=== PATIENT | female | born 1980 | race Caucasian/White ===

== ENCOUNTER 2017-07-02 12:14 | Emergency (ER) | payer OTHER, SELFPAY | END 2017-07-02 13:28 | disposition home or self-care (01) | PROVIDERS: Emergency Provider Nurse Practitioner Family; Family Provider Family Medicine; Visit Provider Nurse Practitioner Family | DX: J01.80 Other acute sinusitis (principal); F17.210 Nicotine dependence, cigarettes, uncomplicated; Z88.1 Allergy status to other antibiotic agents | CPT/HCPCS: 99201 ==

== ENCOUNTER 2017-07-16 16:30 | Emergency (ER) | payer OTHER, SELFPAY ==
[2017-07-16 18:15] VITALS: BP 135/66; PULSE 107; RESP 20; TEMP 37.2; O2SAT 100; BMI 24.7
[2017-07-16 18:26] LABS: UTC Influenza A Antigen Negative (Negative); UTC Influenza B Antigen Negative (Negative)
--- NOTE | 2017-07-16 18:35 | HMH.EDUTC ---
[facility] [place] Impression: Sinusitis Qualifiers: Sinusitis location: other Chronicity: unspecified Qualified Code(s): J32.9 - Chronic sinusitis, unspecified Disposition: Home, Self-Care Condition on Discharge: Good Instructions: Sinusitis, Sinus Headache, DI for Sinusitis Additional Instructions: Start antibiotic. Sinus infections may take 2-3 days to notice much improvement so be sure to use conservative measures as discussed for symptoms Flonase 2 spray in each nostril daily to help with nasal congestion, sinus an ear pressure/inflammation Lots of Fluids Sleep elevated Humidifer/vaporizer Augmentin can cause GI effects. Probiotics may help to prevent these symptoms Prescriptions: Doxycycline Monohydrate 100 mg PO BID #14 capsule Fluconazole [Diflucan] 150 mg PO ONCE #1 tablet predniSONE [Prednisone 20mg Tab] 20 mg PO BID #10 tab Promethazine/Dextromethorphan [Promethazine-Dm Syrup] 5 ml PO Q4H PRN #200 syrup PRN Reason: Cough Referrals: Mike Escamilla [Primary Care Provider] - Time of Disposition: 18:50 (Patient state that she has taken Doxycyline before with no reaction) Medical Decision Making Vital Signs: 07/16/17 18:15 Temperature 99 F Temperature Source Temporal Artery Scan Pulse Rate [Right Brachial] 107 H Respiratory Rate 20 Blood Pressure [Right Arm] 135/66 Blood Pressure Mean [Right Arm] 89 Blood Pressure Source [Right Arm] Automatic Cuff Blood Pressure Position [Right Arm] Sitting 02 Sat by Pulse Oximetry 100 Oxygen Delivery Method Room Air - Lab Data Lab Results 07/16/17 18:17: Influenza Type A Ag Negative, Influenza Type B Ag Negative - Sohan Inquiry Pt receiving controlled substance: No Sohan was queried for this patient: No [facility] [place] - General Stated complaint: cough drainage sore throat Mode of Arrival: Ambulatory Source of Information: Patient Limitations: No Limitations Description of Symptoms (Recalled from Triage Doc. by RN): COUGH, CONGESTION, ACHES, AND CHILLS HEENT Symptoms (Recalled from RN notes): No Resp Symptoms (Recalled from RN notes): Yes (COUGH AND CONGESTION) Skin Symptoms (Recalled from RN notes): No MS Symptoms (Recalled from RN notes): Yes (BODYACHES) Functional Status (Recalled from RN notes): N/A - History of Present Illness Provider Complaint: Patient state that she has been having sinus pain and pressure along with cough, nasal drainage sore throat and body aches State that she has continued to get worse State that she was worried that she may have the flu. State that she was seen about 2 weeks ago because she thought she may have a sinus infection and then it got better now it is back and worse than it was initially - Related Data Previous Rx's Medication Instructions Recorded Doxycycline Monohydrate 100 mg PO BID #14 cap 07/16/17 Fluconazole [Diflucan] 150 mg PO ONCE #1 tab 07/16/17 Promethazine/Dextromethorphan 5 ml PO Q4H PRN #200 syrup 07/16/17 [Promethazine-Dm Syrup] predniSONE [Prednisone 20mg 20 mg PO BID #10 tab 07/16/17 Tab] Allergies Allergy/AdvReac Type Severity Reaction Status Date / Time amoxicillin [AMOXICILLIN] Allergy Intermediate Unverified 07/02/17 12:26 azithromycin [AZITHROMYCIN] Allergy Intermediate Unverified 07/02/17 12:26 cephalexin [From KEFLEX] Allergy Intermediate Unverified 07/02/17 12:26 - Worker's Comp Is this a Worker's Comp case?: No [facility] History I have reviewed the patient's past medical history: Yes Medical History: Denies:: Cancer, Diabetes Mellitus Type 1, Diabetes Mellitus Type 2, MRSA Amputation: No Fractures: No - *Social History Smoking Status: Current every day smoker Tobacco Type: cigarettes Alcohol Intake: current Alcohol Intake Frequency:: holidays/special occasions only - Psychiatric History Expresses thoughts of harming self/others: None Suicide Plan Description: No Plan ROS Obtained: Yes All systems reviewed & no additional complaints
--- NOTE | 2017-07-16 18:38 | ED_ITS ---
[facility] [place] Clinical Impression: Sinusitis Qualifiers: Sinusitis location: other Chronicity: unspecified Qualified Code(s): J32.9 - Chronic sinusitis, unspecified Disposition: Home, Self-Care Condition on Discharge: Good Instructions: Sinusitis, Sinus Headache, DI for Sinusitis Additional Instructions: Start antibiotic. Sinus infections may take 2-3 days to notice much improvement so be sure to use conservative measures as discussed for symptoms Flonase 2 spray in each nostril daily to help with nasal congestion, sinus an ear pressure/inflammation Lots of Fluids Sleep elevated Humidifer/vaporizer Augmentin can cause GI effects. Probiotics may help to prevent these symptoms Prescriptions: Doxycycline Monohydrate 100 mg PO BID #14 capsule Fluconazole [Diflucan] 150 mg PO ONCE #1 tablet predniSONE [Prednisone 20mg Tab] 20 mg PO BID #10 tab Promethazine/Dextromethorphan [Promethazine-Dm Syrup] 5 ml PO Q4H PRN #200 syrup PRN Reason: Cough Referrals: Mike Escamilla [Primary Care Provider] - Time of Disposition: 18:50 (Patient state that she has taken Doxycyline before with no reaction) Medical Decision Making Vital Signs: 07/16/17 18:15 Temperature 99 F Temperature Source Temporal Artery Scan Pulse Rate [Right Brachial] 107 H Respiratory Rate 20 Blood Pressure [Right Arm] 135/66 Blood Pressure Mean [Right Arm] 89 Blood Pressure Source [Right Arm] Automatic Cuff Blood Pressure Position [Right Arm] Sitting 02 Sat by Pulse Oximetry 100 Oxygen Delivery Method Room Air - Lab Data Lab Results 07/16/17 18:17: Influenza Type A Ag Negative, Influenza Type B Ag Negative - Sohan Inquiry Pt receiving controlled substance: No Sohan was queried for this patient: No [facility] [place] HPI - General Stated complaint: cough drainage sore throat Mode of Arrival: Ambulatory Source of Information: Patient Limitations: No Limitations Description of Symptoms (Recalled from Triage Doc. by RN): COUGH, CONGESTION, ACHES, AND CHILLS HEENT Symptoms (Recalled from RN notes): No Resp Symptoms (Recalled from RN notes): Yes (COUGH AND CONGESTION) Skin Symptoms (Recalled from RN notes): No MS Symptoms (Recalled from RN notes): Yes (BODYACHES) Functional Status (Recalled from RN notes): N/A - History of Present Illness Provider Complaint: Patient state that she has been having sinus pain and pressure along with cough, nasal drainage sore throat and body aches State that she has continued to get worse State that she was worried that she may have the flu. State that she was seen about 2 weeks ago because she thought she may have a sinus infection and then it got better now it is back and worse than it was initially - Related Data Previous Rx's Medication Instructions Recorded Doxycycline Monohydrate 100 mg PO BID #14 cap 07/16/17 Fluconazole [Diflucan] 150 mg PO ONCE #1 tab 07/16/17 Promethazine/Dextromethorphan 5 ml PO Q4H PRN #200 syrup 07/16/17 [Promethazine-Dm Syrup] predniSONE [Prednisone 20mg 20 mg PO BID #10 tab 07/16/17 Tab] Allergies Allergy/AdvReac Type Severity Reaction Status Date / Time amoxicillin [AMOXICILLIN] Allergy Intermediate Unverified 07/02/17 12:26 azithromycin [AZITHROMYCIN] Allergy Intermediate Unverified 07/02/17 12:26 cephalexin [From KEFLEX] Allergy Intermediate Unverified 07/02/17 12:26
== END 2017-07-16 19:14 | disposition home or self-care (01) ==
PROVIDERS: Emergency Provider Nurse Practitioner; Family Provider Family Medicine; PCP Family Medicine
DX: J32.9 Chronic sinusitis, unspecified (principal); Z88.1 Allergy status to other antibiotic agents
CPT/HCPCS: 87804; 99202

== ENCOUNTER 2017-07-22 17:59 | Emergency (ER) | payer OTHER, SELFPAY ==
--- NOTE | 2017-07-22 19:34 | XR_ITS ---
XR chest 2V HISTORY: ITS.REASON: COUGH ORDERING PHYSICIAN: Tiffani Brown PATIENT AGE: 36 years COMPARISON: 12/29/2015 FINDINGS: The cardiomediastinal silhouette and pulmonary vascularity are within normal limits. The lungs are clear without infiltrates, suspicious nodules, or pleural effusions. No acute bony abnormalities. IMPRESSION: Negative chest, no acute finding
[2017-07-22 19:36] VITALS: BP 108/79; PULSE 89; RESP 20; TEMP 37.2; O2SAT 98; BMI 24.7
--- NOTE | 2017-07-22 19:48 | HMH.EDUTC ---
[facility] [place] Clinical Impression: Sinusitis Qualifiers: Sinusitis location: other Chronicity: unspecified Qualified Code(s): J32.9 - Chronic sinusitis, unspecified Upper respiratory infection Qualifiers: URI type: unspecified URI Qualified Code(s): J06.9 - Acute upper respiratory infection, unspecified Disposition: Home, Self-Care Condition on Discharge: Good Instructions: Cough, Sinusitis (Alternative Therapy), Sinus Headache, DI for Nasal Congestion, Guaifenesin Additional Instructions: Take medication as prescribed Follow up with family doctor if symptoms do not improve or worsen Return if needed Vaporizer and humidifier may help to moisten the air and help in breathing Drink plenty of water Prescriptions: Albuterol Sulfate [Proair Hfa 90mcg/puff Inh] 2 puffs IH Q4HP PRN #1 inh PRN Reason: Shortness Of Breath Or Wheezing Dextromethorphan Polistirex [Delsym] 10 ml PO Q12H PRN #200 kat.er.12h PRN Reason: Cough Fluticasone Propionate [Flonase 50mcg nasal spray 16gm] 2 spr NS DAILY #1 bottle Guaifenesin/Dextromethorphan [Mucinex Dm ER 1,200-60 mg Tab] 1 each PO Q12 #20 tab.er.12h levoFLOXacin [Levaquin 500mg tab] 500 mg PO DAILY #10 tab Referrals: Mike Escamilla [Primary Care Provider] - Forms: Work/School Release Time of Disposition: 20:35 Medical Decision Making - Medical Records Medical records reviewed: Yes: I reviewed the patient's medical records. Vital Signs: 07/22/17 19:36 Temperature 98.9 F Temperature Source Temporal Artery Scan Pulse Rate [Left Brachial] 89 Respiratory Rate 20 Blood Pressure [Left Arm] 108/79 Blood Pressure Mean [Left Arm] 88 Blood Pressure Source [Left Arm] Automatic Cuff Blood Pressure Position [Left Arm] Sitting 02 Sat by Pulse Oximetry 98 Oxygen Delivery Method Room Air - Lab Data Lab Results 07/22/17 20:04: Influenza Type A Ag Negative, Influenza Type B Ag Negative Orders (Tests/Meds): ED MEDICATIONS Discontinued Medications Generic Name Dose Route Start Last Admin Trade Name Freq PRN Reason Stop Dose Admin Methylprednisolone Sodium Succinate 125 mg 07/22/17 20:27 Solu-Medrol 125mg/2ml Vial IM 07/22/17 20:28 ONCE ONE ORDERS Category Date Time Status Chest XR 2 view (NOT portable) [XR chest 2V] Stat Exams 07/22/17 19:34 Taken - Radiology Data #1 Image(s): Chest Image Reviewed: Yes I reviewed the patient's radiology image w/the ED provider Preliminary Findings: Normal/NAD, No Infiltrates Seen - Sohan Inquiry Pt receiving controlled substance: No Sohan was queried for this patient: No [facility] [place] - General Stated complaint: chest congestion, cough, soa Mode of Arrival: Ambulatory Source of Information: Patient Limitations: No Limitations Description of Symptoms (Recalled from Triage Doc. by RN): STATES THIS IS HER THIRD VISIT IN 3 WEEKS AND HER COUGH IS WORSENING AND SOA IN THE MORNINGS. PT STATES THAT HER COUGH IS PRODUCTIVE. HEENT Symptoms (Recalled from RN notes): No Resp Symptoms (Recalled from RN notes): Yes (COUGH, SOA) Skin Symptoms (Recalled from RN notes): No MS Symptoms (Recalled from RN notes): No Functional Status (Recalled from RN notes): N/A - History of Present Illness Provider Complaint: Patient states that she has been here three times and still not getting any better State that she was seen and treated last week with sinus infection and placed on Doxycycline however still having sinus pressure, cough and congestion States that she was concerned because medication has not helped to improve her symptoms - Related Data Previous Rx's Medication Instructions Recorded Doxycycline Monohydrate 100 mg PO BID #14 cap 07/16/17 Fluconazole [Diflucan] 150 mg PO ONCE #1 tab 07/16/17 Promethazine/Dextromethorphan 5 ml PO Q4H PRN #200 syrup 07/16/17 [Promethazine-Dm Syrup] predniSONE [Prednisone 20mg 20 mg PO BID #10 tab 07/16/17 Tab] Albuterol Sulfate [Proair Hfa 2 puffs IH Q4HP
--- NOTE | 2017-07-22 19:54 | ED_ITS ---
[facility] [place] Disposition Clinical Impression: Sinusitis Qualifiers: Sinusitis location: other Chronicity: unspecified Qualified Code(s): J32.9 - Chronic sinusitis, unspecified Upper respiratory infection Qualifiers: URI type: unspecified URI Qualified Code(s): J06.9 - Acute upper respiratory infection, unspecified Disposition: Home, Self-Care Condition on Discharge: Good Instructions: Cough, Sinusitis (Alternative Therapy), Sinus Headache, DI for Nasal Congestion, Guaifenesin Additional Instructions: Take medication as prescribed Follow up with family doctor if symptoms do not improve or worsen Return if needed Vaporizer and humidifier may help to moisten the air and help in breathing Drink plenty of water Prescriptions: Albuterol Sulfate [Proair Hfa 90mcg/puff Inh] 2 puffs IH Q4HP PRN #1 inh PRN Reason: Shortness Of Breath Or Wheezing Dextromethorphan Polistirex [Delsym] 10 ml PO Q12H PRN #200 kat.er.12h PRN Reason: Cough Fluticasone Propionate [Flonase 50mcg nasal spray 16gm] 2 spr NS DAILY #1 bottle Guaifenesin/Dextromethorphan [Mucinex Dm ER 1,200-60 mg Tab] 1 each PO Q12 #20 tab.er.12h levoFLOXacin [Levaquin 500mg tab] 500 mg PO DAILY #10 tab Referrals: Mike Escamilla [Primary Care Provider] - Forms: Work/School Release Time of Disposition: 20:35 Medical Decision Making - Medical Records Medical records reviewed: Yes: I reviewed the patient's medical records. Vital Signs: 07/22/17 19:36 Temperature 98.9 F Temperature Source Temporal Artery Scan Pulse Rate [Left Brachial] 89 Respiratory Rate 20 Blood Pressure [Left Arm] 108/79 Blood Pressure Mean [Left Arm] 88 Blood Pressure Source [Left Arm] Automatic Cuff Blood Pressure Position [Left Arm] Sitting 02 Sat by Pulse Oximetry 98 Oxygen Delivery Method Room Air - Lab Data Lab Results 07/22/17 20:04: Influenza Type A Ag Negative, Influenza Type B Ag Negative Orders (Tests/Meds): ED MEDICATIONS Discontinued Medications Generic Name Dose Route Start Last Admin Trade Name Freq PRN Reason Stop Dose Admin Methylprednisolone Sodium Succinate 125 mg 07/22/17 20:27 Solu-Medrol 125mg/2ml Vial IM 07/22/17 20:28 ONCE ONE ORDERS Category Date Time Status Chest XR 2 view (NOT portable) [XR chest 2V] Stat Exams 07/22/17 19:34 Taken - Radiology Data #1 Image(s): Chest Image Reviewed: Yes I reviewed the patient's radiology image w/the ED provider Preliminary Findings: Normal/NAD, No Infiltrates Seen - Sohan Inquiry Pt receiving controlled substance: No Sohan was queried for this patient: No [facility] [place] HPI - General Stated complaint: chest congestion, cough, soa Mode of Arrival: Ambulatory Source of Information: Patient Limitations: No Limitations Description of Symptoms (Recalled from Triage Doc. by RN): STATES THIS IS HER THIRD VISIT IN 3 WEEKS AND HER COUGH IS WORSENING AND SOA IN THE MORNINGS. PT STATES THAT HER COUGH IS PRODUCTIVE. HEENT Symptoms (Recalled from RN notes): No Resp Symptoms (Recalled from RN notes): Yes (COUGH, SOA) Skin Symptoms (Recalled from RN notes): No MS Symptoms (Recalled from RN notes): No Functional Status (Recalled from RN notes): N/A - History of Present Illness Provider Complaint: Patient states that she has been here three times and still not getting any better State th
[2017-07-22 20:14] LABS: UTC Influenza A Antigen Negative (Negative); UTC Influenza B Antigen Negative (Negative)
== END 2017-07-22 20:47 | disposition home or self-care (01) ==
PROVIDERS: Emergency Provider Nurse Practitioner; Family Provider Family Medicine; PCP Family Medicine
DX: J06.9 Acute upper respiratory infection, unspecified (principal); J32.9 Chronic sinusitis, unspecified; Z88.1 Allergy status to other antibiotic agents; F17.210 Nicotine dependence, cigarettes, uncomplicated
CPT/HCPCS: 71046; 87804; 96372; 99202; 99282

== ENCOUNTER 2022-05-13 10:12 | Emergency (ER) | payer BC, SELFPAY ==
--- NOTE | 2022-05-13 10:18 | XR_ITS ---
FINAL REPORT CLINICAL HISTORY: PAIN FINDINGS: RIGHT SHOULDER 3 views of the right shoulder were obtained. There is no acute fracture or dislocation. The joint spaces are intact. There is no soft tissue abnormality. IMPRESSION: No acute bony abnormality. Reviewed, Interpreted and Dictated by Nick Avery MD Transcribed by Gayle Bennett Authenticated and [facility]
--- NOTE | 2022-05-13 11:42 | EXP.UTC ---
Discharge Plan Disposition Patient Disposition: Home, Self-Care Condition: Good Prescriptions Prescriptions: New cyclobenzaprine 10 mg tablet 10 mg PO TID PRN (Reason: muscle spasm) Qty: 30 0RF methylprednisolone [Medrol (Bhavesh)] 4 mg tablets,dose pack See Rx Instructions .Route .COMPLEX 6 Days Qty: 21 0RF Rx Instructions: taper pack; No Action escitalopram oxalate [Lexapro] 20 mg tablet 20 mg PO DAILY omeprazole 40 mg capsule,delayed release(DR/EC) 40 mg PO DAILY propranolol 10 mg tablet 10 mg PO BID lorazepam 0.5 mg tablet 0.5 mg PO DAILY PRN albuterol sulfate [ProAir HFA] 90 mcg/actuation HFA aerosol inhaler 1 inh INHALATION QID amoxicillin 500 mg capsule 500 mg PO Q12H 10 Days Qty: 20 0RF Referrals Follow up/Referrals: Provider,Referral, MD [Primary Care Provider] - See instructions Activity Restrictions/Add. Instructions Additional Instructions/Restrictions: *ibuprofen miguel 8 hours with meal as needed for pain/inflammation *Not additional anti-inflammatory like motrin, aleve, advil with the above amount of ibuprofen take as directed on package if you can take it . You can still take Tylenol every 4 hours as needed if you need something else for pain *Ice 20 minutes every 2 hours for the first 48 hours after the initial injury followed by moist heat every 20 minutes 3-4 times a day to affected area *Muscle relaxer every 8 hours as needed for muscle spasms but remember, it WILL cause drowsiness You cannot take it and drive, operate machinery or care for small children. *Keep this area active, no movement leads to more stiffness, However take it easy and avoid heavy lifting pushing or pulling *Follow up with you family doctor if no improvement for further treatment Clinical Impressions Clinical Impression: Muscle spasm Instructions Patient Instructions: DI for Muscle Spasm Discharge ED Provider: Tiffani Brown [facility] General Stated complaint: left shoulder pain, no accident Time Seen by Provider: 05/13/22 11:42 History of Present Illness Provider Complaint: Patient states that she thinks she may have slept wrong and having spasms States that pain is worse when she tries to move her right shoulder and turn her head certain way States that she is not sure if she may have picked up her dog wrong or slept wrong since she woke up that way a couple days ago Denies chest pain States that pain is mainly in her shoulder area and feels tight Related Data Home Medications Medication Instructions Recorded Confirmed albuterol sulfate 90 mcg/actuation 1 inh inhalation QID 03/13/21 03/13/21 aerosol inhaler (ProAir HFA) escitalopram oxalate 20 mg tablet 20 mg PO DAILY 03/13/21 03/13/21 (Lexapro) lorazepam 0.5 mg tablet 0.5 mg PO DAILY PRN 03/13/21 03/13/21 omeprazole 40 mg capsule,delayed 40 mg PO DAILY 03/13/21 03/13/21 release propranolol 10 mg tablet 10 mg PO BID 03/13/21 03/13/21 Previous Rx's Medication Instructions Recorded amoxicillin 500 mg capsule 500 mg PO Q12H otitis media 10 03/13/21 days #20 caps cyclobenzaprine 10 mg tablet 10 mg PO TID PRN muscle spasm #30 05/13/22 tabs methylprednisolone 4 mg tablets in See Rx Instructions .Route 05/13/22 a dose pack (Medrol (Bhavesh)) .COMPLEX 6 days #21 tabs Allergies Allergy/AdvReac Type Severity Reaction Status Date / Time No Known Allergies Allergy Verified 03/13/21 12:55 PFSH PFS Social History Smoking Status: Current every day smoker tobacco type: cigarettes packs per day: 1 alcohol intake: current current occupational status: employed Travel in the last 8 weeks: Inside the [place] housing: house ROS Obtained: Yes All systems reviewed & no additional complaints except as documented and Yes Systems reviewed as appropriate & no additional complaints except as documented Cardiovascular Cardiovascular: Reports system reviewed and no additional complaints,
[2022-05-13 11:43] VITALS: BP 141/78; PULSE 74; RESP 17; TEMP 36.7; O2SAT 98; BMI 30.2
[2022-05-13 12:14] VITALS: BP 136/77; PULSE 71; RESP 17; TEMP 36.7; O2SAT 98
== END 2022-05-13 12:16 | disposition home or self-care (01) ==
PROVIDERS: Emergency Provider Nurse Practitioner
DX: M62.838 Other muscle spasm (principal)
CPT/HCPCS: 73030; 99212; G0463

== ENCOUNTER → 2022-12-13 09:02 | Outpatient (CLI) | payer BC, SELFPAY ==
[2022-12-13 10:08] LABS: Hemoglobin A1C 5.4 % (4.0-6.0)
[2022-12-13 10:14] LABS: Alanine Aminotransferase 21 U/L (12-78); Albumin Level 4.3 g/dl (3.5-5.0); Albumin/Globulin Ratio 1.6 (1.1-1.8); Alkaline Phosphatase 86 U/L (38-126); Anion Gap 13.9 mEq/L (5-15); Aspartate Amino Transferase 24 U/L (14-36); Bilirubin,Total 0.8 mg/dl (0.2-1.3); Blood Urea Nitrogen 14 mg/dl (7-17); Calcium 8.9 mg/dl (8.4-10.2); Carbon Dioxide 29 mmol/L (22.0-30.0); Chloride 102 mmol/L (98-107); Chol/HDL Ratio 4.1 (1-3.5); Cholesterol 156 mg/dl (140-200); Estimated Glomerular Filt Rate 61 ml/min (>60); GFR (African American) 74 ML/MIN (>60); Globulin 2.7 g/dL (1.3-3.2); Glucose 97 mg/dl (74-100); HDL Cholesterol 38 mg/dl (40-60); Potassium 4.9 mmoL/L (3.5-5.1); Sodium 140 mmol/L (136-145); Triglycerides 195 mg/dl (30-150); VLDL Cholesterol 39 mg/dL (0-40)
[2022-12-13 10:25] LABS: Direct LDL Cholesterol 87.07 mg/dL (100-129)
== END ==
PROVIDERS: PCP Nurse Practitioner Family; Visit Provider Nurse Practitioner Family
DX: R73.03 Prediabetes (principal); E78.2 Mixed hyperlipidemia
CPT/HCPCS: 36415; 80053; 80061; 83036

== ENCOUNTER 2024-02-19 09:36 | Outpatient (CLI) | payer BC, SELFPAY ==
[2024-02-19 10:15] LABS: Hemoglobin A1C 5.8 % (4.0-6.0)
[2024-02-19 10:25] LABS: Basophils # 0.1 K/mm3 (0-0.2); Basophils % 1.3 % (0.1-2.0); Eosinophils # 0.2 K/mm3 (0.0-0.4); Eosinophils % 1.6 % (0.1-12.0); Hematocrit 44.3 % (37.0-47.0); Hemoglobin 13.9 g/dL (12.2-16.2); Lymphocytes # 2.6 K/mm3 (0.7-4.5); Lymphocytes % 26.3 % (10-50); Mean Corpuscular HGB Conc 31.4 g/dL (31.8-35.4); Mean Corpuscular Hemoglobin 31.4 pg (27.0-31.2); Mean Platelet Volume 7.9 fl (7.4-10.4); Monocytes # 0.4 K/mm3 (0.1-1.0); Monocytes % 4.3 % (1.7-9.3); Neutrophils # 6.4 K/mm3 (1.8-7.8); Neutrophils % 66.4 % (37.0-80.0); Platelet Count 302 K/mm3 (142-424); Red Blood Count 4.43 M/mm3 (4.20-5.40); Red Cell Distribution Width 14.2 % (11.5-17.5); White Blood Count 9.7 K/mm3 (4.8-10.8)
[2024-02-19 10:38] LABS: Albumin Level 4.2 g/dl (3.5-5.0); Chloride 107 mmol/L (98-107); Sodium 137 mmol/L (136-145)
[2024-02-19 10:39] LABS: Potassium 4.6 mmoL/L (3.5-5.1)
[2024-02-19 10:41] LABS: Alanine Aminotransferase 23 U/L (12-78); Albumin/Globulin Ratio 1.5 (1.1-1.8); Anion Gap 7.6 mEq/L (5-15); Aspartate Amino Transferase 21 U/L (14-36); Blood Urea Nitrogen 12 mg/dl (7-17); Carbon Dioxide 27 mmol/L (22.0-30.0); Estimated Glomerular Filt Rate 54 ml/min (>60); GFR (African American) 66 ML/MIN (>60); Globulin 2.8 g/dL (1.3-3.2)
[2024-02-19 10:42] LABS: Alkaline Phosphatase 80 U/L (38-126); Bilirubin,Total 0.5 mg/dl (0.2-1.3); Chol/HDL Ratio 4.3 (1-3.5); Cholesterol 170 mg/dl (140-200); Glucose 96 mg/dl (74-100); HDL Cholesterol 40 mg/dl (40-60); Triglycerides 128 mg/dl (30-150); VLDL Cholesterol 26 mg/dL (0-40)
[2024-02-19 10:52] LABS: Direct LDL Cholesterol 96.26 mg/dL (100-129)
[2024-02-19 11:12] LABS: Thyroid Stimulating Hormone 2.09 uIU/mL (0.465-4.68)
== END 2024-02-19 23:59 | disposition home or self-care (01) ==
LOC: LAB 09:38
PROVIDERS: PCP Nurse Practitioner Family; Visit Provider Nurse Practitioner Family
DX: E78.5 Hyperlipidemia, unspecified (principal)
CPT/HCPCS: 36415; 80050; 80053; 80061; 83036; 84443; 85025

== ENCOUNTER 2024-06-10 10:55 | Outpatient (CLI) | payer BC, SELFPAY ==
--- NOTE | 2024-06-10 11:00 | XR_ITS ---
FINAL REPORT CLINICAL HISTORY: RT KNEE PAIN COMPARISON: None FINDINGS: Three views of the right knee reveal no evidence of fracture or dislocation. The bony alignment is normal. The joint spaces are preserved. There is no evidence of joint effusion. No localized soft tissue abnormality is identified. IMPRESSION: No acute abnormality identified. Reviewed, Interpreted and Dictated by Chevy Cladwell III, MD Transcribed by Randa Cantu Authenticated and [facility]
== END 2024-06-10 23:59 | disposition home or self-care (01) ==
PROVIDERS: PCP Nurse Practitioner Family; Visit Provider Nurse Practitioner Family
DX: M25.561 Pain in right knee (principal)
CPT/HCPCS: 73562

== ENCOUNTER 2024-07-21 14:58 | Outpatient (CLI) | payer BC, SELFPAY ==
--- NOTE | 2024-07-21 15:03 | US_ITS ---
FINAL REPORT TECHNIQUE: Ultrasound images of the kidneys and bladder were obtained. CLINICAL HISTORY: ABD KIDNEY FUNCTION FINDINGS: The right kidney measures 9.5 cm in length. It is normal in echogenicity. There is no hydronephrosis. The left kidney measures 9.8 cm in length. It is normal in echogenicity. There is no hydronephrosis. Fatty infiltration of the liver is noted. IMPRESSION: No acute process. Reviewed, Interpreted and Dictated by Stella De La Cruz MD Transcribed by Zaria Falcon Authenticated and [facility]
[2024-07-21 15:39] LABS: Microscopic, Urine URINE MICROSCOPIC (MICROSCOPIC)
[2024-07-21 15:58] LABS: Appearance,Urine CLEAR (Clear); Bilirubin,Urine Negative (Negative); Blood, Urine TRACE-I (Negative); Color,Urine YELLOW (Yellow); Glucose,Urine (UA) Negative (Negative); Ketones,Urine Negative (Negative); Leukocyte Esterase,Urine Negative (Negative); Nitrate,Urine Negative (Negative); PH,Urine 6.5 (5.0-8.5); Protein,Urine Negative (Negative); Urobilinogen,Urine 0.2 EU/dl (0.2)
[2024-07-21 16:16] LABS: Bacteria,Urine Trace /lpf; RBC,Urine Occasional #/hpf (0-3); Squamous Epithelial Cell,Urine Occasional #/hpf (0-5); WBC,Urine Occasional #/hpf (0-3)
== END 2024-07-21 23:59 | disposition home or self-care (01) ==
LOC: RAD 14:59
PROVIDERS: PCP Nurse Practitioner Family; Visit Provider Nurse Practitioner Family
DX: N28.9 Disorder of kidney and ureter, unspecified (principal)
CPT/HCPCS: 76770; 81001

== ENCOUNTER 2024-08-16 16:16 | Outpatient (CLI) | payer BC, SELFPAY ==
--- NOTE | 2024-08-16 16:27 | MR_ITS ---
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 There is mild diffuse thinning of the articular cartilage. Marrow signal: Unremarkable Joint fluid: Small Menisci: Unremarkable Ligaments: Unremarkable Tendons: Quadriceps and patellar tendon unremarkable IMPRESSION: Degenerative changes of the right knee without an acute process. Reviewed, Interpreted and Dictated by Stella De La Cruz MD Transcribed by Tiffani Gonzalez Authenticated and [facility]
== END 2024-08-16 23:59 | disposition home or self-care (01) ==
LOC: RAD 16:21
PROVIDERS: PCP Nurse Practitioner Family; Visit Provider Nurse Practitioner Family
DX: M25.561 Pain in right knee (principal)
CPT/HCPCS: 73721

== ENCOUNTER 2025-01-19 14:31 | Emergency (ER) | payer BC, SELFPAY ==
--- OUTSIDE RECORDS SUMMARY | 2024-10-09 17:30 | XMS_ITS ---
Author Organization [facility] Address [address] [place] [address] Care Team Providers Care Keg Header Name Role Phone Doreen Vasquez Primary Care Provider DOREEN VASQUEZ Unavailable Unavaila ble Migration, Provider Unavailable Unavailable REAS[facility] VISIT [facility] Conversion Encounter Medications Medication SIG (Take, Route, Frequency, Duration) Notes Start Date End Date Status Atorvastatin Calcium 10 MG 1 tab(s) orally once a day at bedtime; Duration: 30 days Active Escitalopram Oxalate 10 MG 1 tab(s) orally once a day; Duration: 90 days Active Omeprazole 40 MG 1 tab(s) orally once a day; Duration: 90 days Active Pyridium 200 MG 1 tab(s) orally 3 times a day (after meals); Duration: 2 days 09/09/2024 Active WEGOVY (0.5 MG DOSE) 0.5 MG/0.5 ML (0.5 MG DOSE) INJECT 0.5 MG SUBCUTANEOUSLY ONCE WEEKLY; Duration: 28 *Please review for potential replacement for e-prescription and drug interaction check* Active Propranolol HCl 10 MG 1 tab(s) orally 3 times a day as needed for tremor or anxiety; Duration: 90 days Active Tamiflu 75 MG 1 cap(s) orally 2 times a day; Duration: 5 days 09/10/2024 Active Ondansetron HCl 4 MG 1 tab(s) orally every 8 hours; Duration: 5 days Active Nitrofurantoin Macrocrystal 100 MG 1 cap(s) orally 2 times a day; Duration: 7 day(s) 09/08/2024 Active Encounters Encounter Location Date Provider Diagnosis [facility] [address] [place] [address] 10/09/2024 Provider Migration Other obesity due to excess calories E66.09 and Acute cystitis with hematuria N30.01 Assessments Encounter Date Diagnosis (ICD Code) Assessment Notes Treatment Notes Treatment Clinical Notes Section Notes 10/09/2024 Other obesity due to excess calories (ICD-10 - E66.09) 10/09/2024 Acute cystitis with hematuria (ICD-10 - N30.01) Plan Of Treatment Medication Medication Name Sig Start Date Stop Date Notes Pyridium 200 MG 1 tab(s) orally 3 ti mes a day (after meals); Duration: 2 days 09/09/2024 WEGOVY (0.5 MG DOSE) 0.5 MG/0.5 ML (0.5 MG DOSE) INJECT 0.5 MG SUBCUTANEOUSLY ONCE WEEKLY; Duration: 28 *Please review for potential replacement for e-prescription and drug interaction check* Propranolol HCl 10 MG 1 tab(s) orally 3 times a day as needed for tremor or anxiety; Duration: 90 days Tamiflu 75 MG 1 cap(s) orally 2 ti mes a day; Duration: 5 days 09/10/2024 Progress Notes * IVETTE JeanieOB:1980 ([age] yo F)Acc No.[id number]:10/09/2024 Patient: Kim WARREN Provider: Yung Jesus :1980 A ge:43 Y S ex:Female Date:10/09/2024 Address:[address] [place] [address], [id number] Pcp:Doreen Vasquez Subjective: * Chief Complaints: * 1 . Multum To Medispan Conversion Encounter. * Medical History: * Medications: T aking Atorvastatin Calcium 10 MG Tablet 1 tab(s) orally once a day at bedtime , Taking Escitalopram Oxalate 10 MG Tablet 1 tab(s) orally once a day , Taking Omeprazole 40 MG Capsule Delayed Release 1 tab(s) orally once a day , Taking Ondansetron HCl 4 MG Tablet 1 tab(s) orally every 8 hours , Taking Nitrofurantoin Macrocrystal 100 MG Capsule 1 cap(s) orally 2 times a day Objective: * Vitals: Assessment: * Assessment: 1. O ther obesity due to excess calories - E66.09 2 . A cute cystitis with hematuria - N30.01 Plan: * Treatment: 2. A cute cystitis with hematuria Start Pyridium Tablet, 200 MG, 1 tab(s), orally, 3 times a day (after meals), 2 days, 6, Refills 0.? 3. O thers Start Tamiflu Capsule, 75 MG, 1 cap(s), orally, 2 times a day, 5 days, 10, Refills 0; S tart Propranolol HCl Tablet, 10 MG, 1 tab(s), orally, 3 times a day as needed for tremor or anxiety, 90 days, 270, Refills 0. * * Electronic signature of Prov ider Migration on 01/19/2025 at 02:35 PM EDT Sign off status: Pending * Provider: Yung simmons Migration Date: 0 10/09/2024 Generated for Josh dorantes/Cassidy/Vivien on: 0 01/19/2025 02:35 PM EDT
--- OUTSIDE RECORDS SUMMARY | 2025-01-11 04:45 | XMS_ITS ---
Author Organization [facility] Address [address] [place] [address] Care Team Providers Care Culinary Specialist Name Role Phone Leigha Vasquez Primary Care Provider [phone] LEIGHA VASQUEZ Unavailable Unavaila ble Allergies No Known Allergies Results Component Value Reference Range Notes Urinalysis Reviewed date:01/11/2025 09:50:19 AM Interpretation: Performing Lab: Notes/Report: Color/Clarity orange Leuk large Nitrite positive Urobili 2.0 Protein 100mg pH 5.5 Blood trace-lysed Sp. Gr. 1.015 Ketone trace Bili neg Glucose 100mg CULTURE, URINE, ROUTINE (395 ) Reviewed date:01/15/2025 01:43:31 PM Interpretation: Performing Lab:[facility], [facility] [id number], [id number] [place] Notes/Report: NON-FASTING CULTURE, URINE, ROUTINE SEE NOTE CULTURE, URINE, ROUTINE Micro Number: [id number] Test Status: Final Specimen Source: Urine Specimen Quality: Adequate Result: Greater than 100,000 CFU/mL of Escherichia coli COMMENT: Additional non-predominating organism(s) isolated. These organisms, commonly found on external and internal genitalia, are considered colonizers. No further testing performed. E.coli INT ANTONIA AMOX/CLAVULANATE S <=2 AMP/SULBACTAM S <=2 CEFAZOLIN NR <=4 2 CEFEPIME S <=0.12 CEFTAZIDIME S <=1 CEFTRIAXONE S <=0.25 CIPROFLOXACIN S <=0.06 GENTAMICIN S <=1 IMIPENEM S <=0.25 LEVOFLOXACIN S <=0.12 MEROPENEM S <=0.25 NITROFURANTOIN S <=16 PIP/TAZOBACTAM S <=4 TRIMETHOPRIM/SULFA R >=320 S = Susceptible I = Intermediate R = Resistant NS = Not susceptible SDD = Susceptible Dose Dependent * = Not Tested NR = Not Reported NN = See Therapy Comments THERAPY COMMENTS Note 1: For infections other than uncomplicated UTI caused by E. coli, K. pneumoniae or P. mirabilis: Cefazolin is resistant if ANTONIA > or = 8 mcg/mL. (Distinguishing susceptible versus intermediate for isolates with ANTONIA < or = 4 mcg/mL requires additional testing.) Note 2: For uncomplicated UTI caused by E. coli, K. pneumoniae or P. mirabilis: Cefazolin is susceptible if ANTONIA <32 mcg/mL and predicts susceptible to the oral agents cefaclor, cefdinir, cefpodoxime, cefprozil, cefuroxime, cephalexin and loracarbef. REASON FOR VISIT Med Check, UTI Medications Medication SIG (Take, Route, Frequency, Duration) Notes Start Date End Date Status Wegovy 1.7 MG/0.75ML 0.75 mL Subcutaneou s once a week; Duration: 28 days 01/11/2025 Active Nitrofurantoin Monohyd Macro 100 MG 1 capsule with food Orally every 12 hrs; Duration: 5 days 01/11/2025 Active Atorvastatin Calcium 10 MG 1 tab(s) oral ly once a day at bedtime; Duration: 30 days Active Omeprazole 40 MG 1 tab(s) orally once a day; Duration: 90 days Active Ondansetron HCl 4 MG 1 tab(s) orally marcio ry 8 hours; Duration: 5 days Active Propranolol HCl 10 MG 1 tab(s) orally 3 times a day as needed for tremor or anxiety; Duration: 90 days Active Social History Tobacco Use: Social History Observation Description Date Details (start date - stop date) Former Smoker NA - NA Tobacco Control (Standard) Question Answer Notes Tobacco use: Former smoker How long has it been since you last smoked? 3-6 months Vital Signs Temperature 97.7 degrees Fahrenheit 01/12/20 25 Blood pressure systolic 110 mm Hg 01/12/20 25 Blood pressure diastolic 78 mm Hg 025 Heart Rate 76 /min 01/11/2025 Height 62 in 01/11/2025 Weight 151 lbs 01/11/2025 BMI 27.62 kg/m2 01/11/2025 Encounters Encounter Location Date Provider Diagnosis [facility] [address] [place], [place] [address] 01/11/2025 Leigha Vasquez Dysuria R30.0 ; Weight loss counseling, encounter for Z71.3 ; Other obesity due to excess calories E66.09 and BMI 27.0-27.9,adult Z68.27 Assessments Encounter Date Diagnosis (ICD Code) Assessment Notes Treatment Notes Treatment Clinical Notes Section Notes 01/11/2025 Dysuria (ICD-10 - R30.0) 01/11/2025 Weight loss counseling, encounter for (ICD-10 - Z71.3) tolerating Wegovy well, continue efforts with dietary intake and regular exercise, return precautions reviewed 01/11/2025 Other obesity due to excess calories (ICD-10 - E66.09) Reviewed indication for medication and that dietary changes as well as exercise are recommended as well. Small, frequent meals recommended. Possible side effects and return precautions reviewed. Goal is 4% weight loss over the first 4 months. 01/11/2025 BMI 27.0-27.9,adul t (ICD-10 - Z68.27) Plan Of Treatment Medication Medication Name Sig Start Date Stop Date Notes Escitalopram Oxalate 10 MG 1 tab(s) orally once a day Wegovy 1.7 MG/0.75ML 0.75 mL Subcutaneou s once a week; Duration: 28 days 01/11/2025 Nitrofurantoin Monohyd Macro 100 MG 1 capsule with food Orally every 12 hrs; Duration: 5 days 01/11/2025 WEGOVY (0.5 MG DOSE) 0.5 mg/0.5 mL (0.5 mg dose) 0.5 mg subcutaneously once a week Wegovy 1 MG/0.5ML 1mL Subcutaneous once a week Next Appt Details Follow Up: 3 Months, Reason: Progress Notes * Jeanie STEELEOB:1980 ([age] yo F)Acc No.[id number]:01/11/2025 Progress Notes Patient: Kim WARREN Provider: SHAYNE Wray :1980 A ge:44 Y S ex:Female Date:01/11/2025 Address[id number] Subjective: * Chief Complaints: * 1 . Med Check, UTI. * HPI: g en: 44-year-old female presents today to follow-up since starting Wegovy for weight loss. Reports some mild constipation managable with OTC stool softeners but otherwise tolerating very well. Has done well with diet and exercise over the past month because she has been off work but is resume soon. Weight is down appropriately. Reports UTI symptoms since returning from vacation, has had pyridium with some relief. No fevers or gross hematuria. * ROS: R ESPIRATORY: Reviewed, No Symptoms Reported: Y es. C ONSTITUTIONAL: Reviewed, No Symptoms Reported: Y es. G ASTROENTEROLOGY: See HPI Y es. U ROLOGY: See HPI Y es. * Medical History: A nxiety, Pre-diabetes, A1C 6.0, Hyperlipidemia. * Surgical History: P artial hysterectomy 2013, lt fallopian tube removal 2009, oral surgery 2015, sinus surgery 2015. * Hospitalization/Major Diagno stic Procedure: P artial hysterectomy 2013, 2006. * Family History: F ather: alive. M other: , dementia, early onset frontotemperal lobe dementia, diagnosed with Mental Illness. P aternal Grand Father: . P aternal Grand Mother: , colon cancer. M aternal Grand Father: , diagnosed with Heart Disease. M aternal Grand Mother: alive. P aternal uncle: alive, 1 uncle -colon cancer, diagnosed with Cancer. P aternal aunt: alive. M aternal uncle: . M aternal aunt: alive, diagnosed with Heart Disease. S iblings: alive. C hildren: alive. 1 brother(s) - healthy. 1 son(s) - healthy. . * Social History: R ecreational drug use: yes, current-THC gummies. Exercise: no. Home smoke detector use: yes. Caffeine: yes, frequency: Diet Mt Dew. Living Will: Yes. Alcohol: socially, Type: , Frequency: ,Years: , Determination:. Sexually active: yes. Travel outside [place]: no. 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 Tobacco Control (Standard) T obacco use: F ormer smoker, H ow long has it been since you last smoked? 3 -6 months. * Medications: T aking Atorvastatin Calcium 10 MG Tablet 1 tab(s) orally once a day at bedtime , Taking Omeprazole 40 MG Capsule Delayed Release 1 tab(s) orally once a day , Taking Ondansetron HCl 4 MG Tablet 1 tab(s) orally every 8 hours , Taking Propranolol HCl 10 MG Tablet 1 tab(s) orally 3 times a day as needed for tremor or anxiety , Taking Wegovy 1 MG/0.5ML Solution Auto-injector 1mL Subcutaneous once a week , Not- Taking Escitalopram Oxalate 10 MG Tablet 1 tab(s) orally once a day , Medication List reviewed and reconciled with the patient * Allergies: N .K.D.A. Objective: * Vitals: N urse:sw, Pain:7 uti pain, Temp:97.7, RR:18, HR:76, BP:110/78, Ht: 62, Wt:151, BMI:27.62. * Examination: G eneral Examination: General P leasant and Cooperative, NAD on RA,. Heart: R egular Rate and Rhythm, no murmur, rubs or gallops. Lungs: c lear to auscultation,. Abdomen: s oft, NT/ND, BS present, no CVA tenderness,. neck s upple,, no thyromegaly,, no lymphadenopathy,. Psych N ormal Mood/Affect. Assessment: * Assessment: 1. W eight loss counseling, encounter for - Z71.3 (Primary) 2 . D ysuria - R30.0 3 . O ther obesity due to excess calories - E66.09 4 .?BMI 27.0-27.9,adult - Z68.27 Plan: * Treatment: 2. D ysuria Start Nitrofurantoin Monohyd Macro Capsule, 100 MG, 1 capsule with food, Orally, every 12 hrs, 5 days, 10, Refills 0. L AB: CULTURE, URINE, ROUTINE (395) Value Reference Range C ULTURE SEE NOTE A - * This lab was reviewed by Clarke Vasquez on 01/15/2025 at 13:43 PM EDT ?LAB: Urinalysis (Collection Date & Time - 01/11/2025)* Value Reference Range C olor/Clarity orange * L euk large * N itrite positive * U robili 2.0 * P rotein 100mg * p H 5.5 * B lood trace-lysed * S p. Gr. 1.015 * K etone trace * B michela neg * G lucose 100mg * Leigha Medel 08:52:13 AM EDT >This lab was reviewed by Leigha Vasquez on 01/11/2025 at 09:50 AM EDT 3.?Other obesity due to excess calories? Clinical Notes: Reviewed indication for medication and that dietary changes as well as exercise arerecommended as well. Small, frequent meals recommended. Possible side effects and return precautions reviewed. Goal is 4% weight loss over the first 4 months.??4.?Others? Stop WEGOVY (0.5 MG DOSE) solution, 0.5 mg/0.5 mL (0.5 mg dose), 0.5 mg, subcutaneously, once a week;?Stop Escitalopram Oxalate Tablet, 10 MG, 1 tab(s), orally, once a day.?? * Procedure Codes: 8 1002 URINALYSIS, Modifiers: QW * Follow Up: 3 Months * * Sign off status: Completed true * Provider: SHAYNE Wray Date: 01/11/2025 Generated for Josh dorantes/Cassidy/Shaunsmitting on: 01/19/2025 02:35 PM EDT History and Physical Notes * Examination Category Sub-Category Detail Notes Category Not es General Examination Heart: Regular Rate and Rhythm, no murmur, rubs or gallops Lungs: clear to auscultatio n, Abdomen: soft, NT/ND, BS pres ent, no CVA tenderness, neck supple,, no thyromeg sancho,, no lymphadenopathy, General Pleasant and Coopera tive, NAD on RA, Psych Normal Mood/Affect
--- OUTSIDE RECORDS SUMMARY | 2025-01-11 05:12 | XMS_ITS ---
Author Organization [facility] Address [address] [place] [address] Care Team Providers Care Transit Specialist Name Role Phone Christina Doreen Primary Care Provider DOREEN SOLIS Unavailable Unavaila ble REASON FOR VISIT labs Encounters Encounter Location Date Provider Diagnosis [facility] [address] [place], [place] [address] 01/11/2025 Doreen Christina Elevated serum creatinine R79.89 ; Mild hyperlipidemia E78.5 and Prediabetes R73.03 Assessments Encounter Date Diagnosis (ICD Code) Assessment Notes Treatment Notes Treatment Clinical Notes Section Notes 01/11/2025 Elevated serum creatinine (ICD-10 - R79.89) 01/11/2025 Mild hyperlipidemia (ICD-10 - E78.5) 01/11/2025 Prediabetes (ICD-10 - R73.03) Plan Of Treatment Pending Test Test Name Order Date LIPID PANEL, STANDARD (7600) 01/11/2025 COMPREHENSIVE METABOLIC PANEL (15353) HEMOGLOBIN A1c (496) 01/11/2025 Progress Notes * Jeanie STEELEOB:1980 ([age] yo F)Acc No.[id number]:01/11/2025 Patient: Kim WARREN :1980 A ge:44 Y S ex:Female Address:[address] [place], [place] [address] [address] Subjective: * Chief Complaints: * L abs * Medical History: * Surgical History: * Hospitalization/Major Diagno stic Procedure: * Medications: Objective: * Vitals: * Physical Examination: Assessment: * Assessment: 1. E levated serum creatinine - R79.89 (Primary) 2 . M ild hyperlipidemia - E78.5 3 . P rediabetes - R73.03 Plan: * Treatment: 2. M ild hyperlipidemia L AB: LIPID PANEL, STANDARD (7600) L AB: COMPREHENSIVE METABOLIC PANEL (04421) L AB: HEMOGLOBIN A1c (496) 3. P rediabetes L AB: LIPID PANEL, STANDARD (7600) L AB: COMPREHENSIVE METABOLIC PANEL (21407) L AB: HEMOGLOBIN A1c (496) * Procedure Codes: * true * Date: Generated for Josh dorantes/Cassidy/Ericitting on: 0 01/19/2025 02:35 PM EDT
--- OUTSIDE RECORDS SUMMARY | 2025-01-19 14:36 | XMS_ITS | Patient Health Record ---
Author Organization 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 Name Role Phone Leigha Vasquez Primary Care Provider [phone] LEIGHA VASQUEZ Unavailable Unavaila ble Leigha Velazco Unavailable [phone] Migration, Provider Unavailable Unavailable Allergies No Known Allergies Results Component Value Reference Range Notes CULTURE, URINE, ROUTINE (395 ) Reviewed date:01/15/2025 01:43:31 PM Interpretation: Performing Lab:CB, [facility] [id number], [facility] HomeIdabAT[address] Pedro Holly Notes/Report: NON-FASTING CULTURE, URINE, ROUTINE SEE NOTE CULTURE, URINE, ROUTINE Micro Number: [id number] Test Status: Final Specimen Source: Urine Specimen [...] cefdinir, cefpodoxime, cefprozil, cefuroxime, cephalexin and loracarbef. HEMOGLOBIN A1c (496) Reviewed date:06/25/2024 02:35:09 PM Interpretation: Performing Lab:KATHERINE [facility] [id number] [employer] Daniel, [place] IjacIZ[address] Pedro Holly Notes/Report: NON-FASTING; NON-FASTING; NON-FASTING; NON-FASTING HEMOGLOBIN A1c 6.0 <5.7 % of total Hgb For someone without known diabetes, a hemoglobin A1c value between 5.7% and 6.4% is consistent with prediabetes and should be confirmed with a follow-up test. For someone with known diabetes, a value <7% indicates that their diabetes is well controlled. A1c targets should be individualized based on duration of diabetes, age, comorbid conditions, and other considerations. This assay result is consistent with an increased risk of diabetes. Currently, no consensus exists regarding use of hemoglobin A1c for diagnosis of diabetes for children. CBC (INCLUDES DIFF/PLT) (639 9) Reviewed date:06/25/2024 02:35:27 PM Interpretation: Performing Lab:KATHERINE [facility] [address] [employer] Daniel, [employer] SystemsSsdmKO[address] Pedro Holly Notes/Report: NON-FASTING; NON-FASTING; NON-FASTING; NON-FASTING WHITE BLOOD CELL COUNT 8.6 3.8-10.8 Thousand/ uL RED BLOOD CELL COUNT 4.34 3.80-5.10 Million/uL HEMOGLOBIN 13.7 11.7-15.5 g/dL HEMATOCRIT 41.0 35.0-45.0 % MCV 94.5 80.0-100.0 fL MCH 31.6 27.0-33.0 pg MCHC 33.4 32.0-36.0 g/dL For adults, a slight decrease in the calculated MCHC value (in the range of 30 to 32 g/dL) is most likely not clinically significant; however, it should be interpreted with caution in correlation with other red cell parameters and the patient's clinical condition. RDW 12.9 11.0-15.0 % PLATELET COUNT 368 140-400 Thousand/uL MPV 10.2 7.5-12.5 fL ABSOLUTE NEUTROPHILS 5401 9434-1805 cells/uL ABSOLUTE LYMPHOCYTES 2614 850-3900 cells/uL ABSOLUTE MONOCYTES 421 200-950 cells/uL ABSOLUTE EOSINOPHILS 112 15-500 cells/uL ABSOLUTE BASOPHILS 52 0-200 cells/uL NEUTROPHILS 62.8 LYMPHOCYTES 30.4 MONOCYTES 4.9 EOSINOPHILS 1.3 BASOPHILS 0.6 COMPREHENSIVE METABOLIC PANE L (83713) Reviewed date:06/25/2024 02:42:22 PM Interpretation: Performing Lab:CB, [facility], [facility] MinnesotaKqwnNO[address] Pedro Holly Notes/Report: NON-FASTING; NON-FASTING; NON-FASTING; NON-FASTING GLUCOSE 88 65-99 mg/dL Fasting reference interval UREA NITROGEN (BUN) 12 7-25 mg/dL CREATININE 1.15 0.50-0.99 mg/dL EGFR 61 > OR = 60 mL/min/1.73m2 BUN/CREATININE RATIO 10 6-22 (calc) SODIUM 137 135-146 mmol/L POTASSIUM 4.5 3.5-5.3 mmol/L CHLORIDE 102 98-110 mmol/L CARBON DIOXIDE 28 20-32 mmol/L CALCIUM 9.6 8.6-10.2 mg/dL PROTEIN, TOTAL 7.1 6.1-8.1 g/dL ALBUMIN 4.4 3.6-5.1 g/dL GLOBULIN 2.7 1.9-3.7 g/dL (calc) ALBUMIN/GLOBULIN RATIO 1.6 1.0-2.5 (calc) BILIRUBIN, TOTAL 0.5 0.2-1.2 mg/dL ALKALINE PHOSPHATASE 87 31-125 U/L AST 12 10-30 U/L ALT 14 6-29 U/L LIPID PANEL, STANDARD (7600) Reviewed date:06/25/2024 02:35:21 PM Interpretation: Performing Lab:KATHERINE, [facility] [address], [place] PérezUdyxIC[address] Pedro Rell Holly Notes/Report: NON-FASTING; NON-FASTING; NON-FASTING; NON-FASTING CHOLESTEROL, TOTAL 182 <200 mg/dL HDL CHOLESTEROL 41 > OR = 50 mg/dL TRIGLYCERIDES 168 <150 mg/dL LDL-CHOLESTEROL 113 Reference range: <100 Desirable range <100 mg/dL for primary prevention; <70 mg/dL for patients with CHD or diabetic patients with > or = 2 CHD risk factors. LDL-C is now calculated using the Patti calculation, which is a validated novel method providing better accuracy than the Friedewald equation in the estimation of LDL-C. Petr CLARK et al. ERICH. 2013;310(19): 2442-2315 (http://education.Surfingbird.[employer]/faq/FAQ 164) CHOL/HDLC RATIO 4.4 <5.0 (calc) NON HDL CHOLESTEROL 141 <130 mg/dL (calc) For patients with diabetes plus 1 major ASCVD risk factor, treating to a non-HDL-C goal of <100 mg/dL (LDL-C of <70 mg/dL) is considered a therapeutic option. M-Thyroid Stimulating Hormon e Reviewed date:02/20/2024 02:51:43 PM Interpretation: Performing Lab: Notes/Report: TSH 2.09 0.465-4.68 uIU/mL M-Lipid Panel Reviewed date:02/20/2024 02:51:43 PM Interpretation: Performing Lab: Notes/Report: Patient Fasting? Y TRIG 128 30-150 mg/dl CHOL 170 140-200 mg/dl DLDL 96.26 100-129 mg/dL VLDL 26 0-40 mg/dL HDL 40 40-60 mg/dl CHLHDL 4.3 1-3.5 M-Hemoglobin A1C Reviewed date:02/20/2024 02:51:42 PM Interpretation: Performing Lab: Notes/Report: HGBA1C 5.8 4.0-6.0 % < 6% Non-Diabetic Level < 7% Controlled Diabetic Level > 8% Poorly Controlled Diabetic Level M-Comprehensive Metabolic Pa jose j Reviewed date:02/20/2024 02:51:42 PM Interpretation: Performing Lab: Notes/Report: NA 137 136-145 mmol/L K 4.6 3.5-5.1 mmoL/L CL 107 98-107 mmol/L CO2 27 22.0-30.0 mmol/L GAP 7.6 5-15 mEq/L BUN 12 7-17 mg/dl CREATT 1.10 0.52-1.04 mg/dl GFRAA 66 >60 ML/MIN EGFR 54 >60 ml/min GLU 96 74-100 mg/dl CA 9.0 8.4-10.2 mg/dl BILIT 0.5 0.2-1.3 mg/dl AST 21 14-36 U/L ALT 23 12-78 U/L TP 7.0 6.3-8.2 g/dl ALB 4.2 3.5-5.0 g/dl GLOB 2.8 1.3-3.2 g/dL AGRATIO 1.5 1.1-1.8 ALP 80 38-126 U/L M-Urinalysis and Microscopic Reviewed date:07/23/2024 01:29:35 PM Interpretation: Performing Lab: Notes/Report: UCOL YELLOW Yellow UAPP CLEAR Clear UPH 6.5 5.0-8.5 USG 1.020 1.005-1.030 UPRO Negative Negative UGLU Negative Negative UKET Negative Negative UBLD TRACE-I Negative UNIT Negative Negative UBIL Negative Negative UURO 0.2 0.2 EU/dl ULEU Negative Negative UMICU URINE MICROSCOPIC MICROSCOPIC URBC Occasional 0-3 #/hpf UWBC Occasional 0-3 #/hpf USQEPI Occasional 0-5 #/hpf UBACT Trace NONE /lpf M-Complete Blood Count Auto Diff Reviewed date:02/20/2024 02:51:42 PM Interpretation: Performing Lab: Notes/Report: WBC 9.7 4.8-10.8 K/mm3 RBC 4.43 4.20-5.40 M/mm3 HGB 13.9 12.2-16.2 g/dL HCT 44.3 37.0-47.0 % MCV 100.0 81-99 fl MCH 31.4 27.0-31.2 pg MCHC 31.4 31.8-35.4 g/dL RDW 14.2 11.5-17.5 % PLT 302 142-424 K/mm3 MPV 7.9 7.4-10.4 fl NE% 66.4 37.0-80.0 % LY% 26.3 10-50 % MO% 4.3 1.7-9.3 % EO% 1.6 0.1-12.0 % BA% 1.3 0.1-2.0 % NE# 6.4 1.8-7.8 K/mm3 LY# 2.6 0.7-4.5 K/mm3 MO# 0.4 0.1-1.0 K/mm3 EO# 0.2 0.0-0.4 K/mm3 BA# 0.1 0-0.2 K/mm3 MRI : Knee, Right Reviewed date:08/19/2024 09:17:49 AM Interpretation: Performing Lab: Notes/Report: Urinalysis Reviewed date:01/11/2025 09:50:19 AM Interpretation: Performing Lab: Notes/Report: Color/Clarity orange Leuk large Nitrite positive Urobili 2.0 Protein 100mg pH 5.5 Blood trace-lysed Sp. Gr. 1.015 Ketone trace Bili neg Glucose 100mg Urinalysis Reviewed date:09/08/2024 02:18:32 PM Interpretation: Performing Lab: Notes/Report: Color/Clarity yellow Leuk small Nitrite pos Urobili 0.2 Protein neg pH 7.0 Blood trace Sp. Gr. 1.015 Ketone trace Bili neg Glucose neg Ultrasound : Renal, bilatera l Reviewed date:07/23/2024 04:28:59 PM Interpretation: Performing Lab: Notes/Report: X ray : Knee, Right Reviewed date:06/16/2024 10:42:55 AM Interpretation: Performing Lab: Notes/Report: CULTURE, URINE, ROUTINE (395 ) Reviewed date:09/13/2024 12:46:12 PM Interpretation: Performing Lab:CB, [facility] [address] [facility], [facility] MinnesotaRasdZF[address] Pedro Holly Notes/Report: NON-FASTING CULTURE, URINE, ROUTINE SEE NOTE CULTURE, URINE, ROUTINE Micro Number: [id number] Test Status: Final Specimen Source: Urine Specimen Quality: Adequate Result: Greater than 100,000 CFU/mL of Escherichia coli E.coli INT ANTONIA AMOX/CLAVULANATE S 4 AMP/SULBACTAM S 4 CEFAZOLIN NR <=4 2 CEFEPIME S <=0.12 CEFTAZIDIME S <=1 CEFTRIAXONE S <=0.25 CIPROFLOXACIN S <=0.06 GENTAMICIN S <=1 IMIPENEM S <=0.25 LEVOFLOXACIN S <=0.12 MEROPENEM S <=0.25 NITROFURANTOIN S 32 PIP/TAZOBACTAM S <=4 TRIMETHOPRIM/SULFA S <=20 S = Susceptible I = Intermediate R [...] cefdinir, cefpodoxime, cefprozil, cefuroxime, cephalexin and loracarbef. Rapid Covid/Flu A-B Combo Reviewed date:09/09/2024 03:03:50 PM Interpretation: Performing Lab: Notes/Report: Rapid Covid neg Flu A neg Flu B neg Rapid Strep Reviewed date:07/31/2024 11:45:48 AM Interpretation:Negative Performing Lab: Notes/Report: Negative Reason For Referral Reason MRI right knee witho ut contrast Diagnosis 1 Pain, joint, knee, r ight (M25.561) Referral Organization [facility] АННА Referring Provider First Name Leigha Referring Provider Last Name Christina Referring Provider Speciality Family Pra ctice Referred Organization [facility] Referred Address [address],[address], Referred Provider Specialty Diagnostic R adiology General Notes Shonda Lopez 2023 12:27:21 PM >No precert required- sent to [facility] to schedule appt Referral Priority Routine Referral Appointment Date 07/30/2024 Reason PT - [facility] Referral Organization [facility] АННА Referring Provider First Name Leigha Referring Provider Last Name Christina Referring Provider Speciality Family Pra ctice Referred Organization [facility] Referred Address [address] [facility] [address], [place],[address] Referred Provider Specialty Physical Med icine and Rehabilitation General Notes Shonda Lopez 2024 10:30:19 AM >Order faxed to [facility] Rehab- They will contact patient to schedule appt. Referral Priority Routine Medications Medication SIG (Take, Route, Frequency, Duration) Notes Start Date End Date Status Wegovy 1.7 MG/0.75ML 0.75 mL Subcutaneou s once a week; Duration: 28 days 01/11/2025 Active Atorvastatin Calcium 10 MG 1 tab(s) oral ly once a day at bedtime; Duration: 30 days Active Nitrofurantoin Monohyd Macro 100 MG 1 capsule with food Orally every 12 hrs; Duration: 5 days 01/11/2025 Active Omeprazole 40 MG 1 tab(s) orally once a day; Duration: 90 days Active Ondansetron HCl 4 MG 1 tab(s) orally marcio ry 8 hours; Duration: 5 days Active Propranolol HCl 10 MG 1 tab(s) orally 3 times a day as needed for tremor or anxiety; Duration: 90 days Active Immunizations Vaccine Route Administration Date Status Comme nts Fluvirin--Influenza vaccine 3+ year IM Intramuscular 05/05/2008 Administered Social History Tobacco Use: Social History Observation Description Date Details (start date - stop date) Former Smoker NA - NA Tobacco Control (Standard) Question Answer Notes Tobacco use: Former smoker How long has it been since you last smoked? 3-6 months Problems Problem Type SNOMED Code ICD Code Onset Dates Problem Status W/U Status Risk Notes Problem Obesity due to excess calories (334562507) Other obesity due to excess calories (E66.09) Active confirmed Problem Tobacco use (182782583) Tobacco use (Z72.0) Active confirmed Problem Body mass index 30.00 to 34.99 (782353391756949) BMI 31.0-31.9,adult (Z68.31) Active confirmed Problem Chronic pain (45651313) Other chronic pain (G89.29) Active confirmed Problem BMI 30+ - obesity (108636349) BMI 32.0-32.9,adult (Z68.32) Active confirmed Problem Generalized anxiety disorder (03605527) KAVITHA (generalized anxiety disorder) (F41.1) Active confirmed Problem Gastroesophageal reflux disease (disorder) (638438731) Chronic GERD (K21.9) Active confirmed Problem Mixed hyperlipidemia (624717207) Mixed dyslipidemia (E78.2) Active confirmed Problem Hyperlipidemia (61397105) Mild hyperlipidemia (E78.5) Active confirmed Problem Arthritis of right knee (6611421756471089) Arthritis of knee, right (M17.11) Active confirmed Problem Body mass index 30.00 to 34.99 (741875177345159) Body mass index [BMI] 32.0-32.9, adult (Z68.32) Active confirmed Vital Signs Heart Rate 76 /min 01/11/2025 Temperature 97.7 degrees Fahrenheit 01/11/2025 Blood pressure diastolic 78 mm Hg 01/11/2025 Height 62 in 01/11/2025 Blood pressure systolic 110 mm Hg 01/11/2025 Weight 151 lbs 01/11/2025 BMI 27.62 kg/m2 01/11/2025 Encounters Encounter Location Date Provider Diagnosis [facility] [address] [place], [employer] [address] 10/09/2024 Provider Migration Other obesity due to excess calories E66.09 and Acute cystitis with hematuria N30.01 [facility] [address] [place] [address] 02/19/2024 Leigha Christina Pain, joint, knee, right M25.561 ; Mild hyperlipidemia E78.5 ; Tobacco use Z72.0 ; Routine medical exam Z00.00 ; BMI 32.0-32.9,adult Z68.32 and KAVITHA (generalized anxiety disorder) F41.1 [facility] [address] [facility] [address] [place] [address] 06/24/2024 Leigha Christina Pain, joint, knee, right M25.561 ; Mild hyperlipidemia E78.5 ; KAVITHA (generalized anxiety disorder) F41.1 and Prediabetes R73.03 [facility] [address] [place] [address] 07/31/2024 Leigha Vasquez Sore throat J02.9 ; Bronchitis J40 ; Other obesity due to excess calories E66.09 ; Body mass index [BMI] 32.0-32.9, adult Z68.32 and Obesity, class 1 E66.811 [facility] [address] [facility] [address] [place] [address] 09/06/2024 Leighamarybeth Del RealChristina Other obesity due to excess calories E66.09 ; Weight loss counseling, encounter for Z71.3 ; Obesity, class 1 E66.811 and BMI 31.0-31.9,adult Z68.31 [facility] [address] [facility] [address] [place] [address] 09/08/2024 Leigha Velazco Dysuria R30.0 and Acute cystitis with hematuria N30.01 [facility] [address] [facility] [address] [place] [address] 09/09/2024 Leigha Velazco Acute cystitis with hematuria N30.01 ; Viral URI J06.9 and Fever in adult R50.9 [facility] [address] [facility] [address] [place] [address] 01/11/2025 Leigha Vasquez Dysuria R30.0 ; [facility] ht loss counseling, encounter for Z71.3 ; Other obesity due to excess calories E66.09 and BMI 27.0-27.9,adult Z68.27 [facility] [address] [facility] [address] [place] [address] 06/07/2024 Leighamarybeth Del RealChristina Pain, joint, knee, right M25.561 [facility] [address] [facility] [address] [place] [address] 06/25/2024 Leighamarybeth Del RealChristina Abnormal kidney function N28.9 and Renal function test abnormal R94.4 [facility] [address] [facility] [address] [place] [address] 08/19/2024 Leighamarybeth Del RealChristina Arthritis of knee, right M17.11 [facility] [address] [facility] [address] [place] [address] 09/10/2024 Leigha Vasquez [facility] [address] [facility] [address] [place] [address] 10/19/2024 Leigha Vasquez Other obesity due to excess calories E66.09 [facility] [address] [place] [address] 10/26/2024 Leigha Vasquez Other obesity due to excess calories E66.09 and Acute cystitis with hematuria N30.01 [facility] [address] [place], [place] [address] 12/31/2024 Leigha Vasquez [facility] [address] [place] [address] 01/11/2025 Leigha Vasquez Elevated serum creatinine R79.89 ; Mild hyperlipidemia E78.5 and Prediabetes R73.03 [facility] [address] [place] [address] 01/12/2025 Leigha Vasquez Assessments Encounter Date Diagnosis (ICD Code) Assessment Notes Treatment Notes Treatment Clinical Notes Section Notes 02/19/2024 Pain, joint, knee, right (ICD-10 - M25.561) consider PT but recommend imaging to eval for chronic joint changes, loose body 02/19/2024 Mild hyperlipidemia (ICD-10 - E78.5) 06/07/2024 Pain, joint, knee, right (ICD-10 - M25.561) 06/24/2024 Pain, joint, knee, right (ICD-10 - M25.561) concern for meniscal injury, recommend MRI to help guide management 06/24/2024 Mild hyperlipidemia (ICD-10 - E78.5) 06/25/2024 Abnormal kidney function (ICD-10 - N28.9) 07/31/2024 Bronchitis (ICD-10 - J40) 07/31/2024 Sore throat (ICD-10 - J02.9) 08/19/2024 Arthritis of knee, right (ICD-10 - M17.11) 09/06/2024 Other obesity due to excess calories (ICD-10 - E66.09) Reviewed indication for medication and that dietary changes as well as exercise are recommended as well. Small, frequent meals recommended. Possible side effects and return precautions reviewed. Goal is 4% weight loss over the first 4 months. 09/06/2024 Weight loss counseling, encounter for (ICD-10 - Z71.3) tolerating Wegovy well, continue efforts with dietary intake and regular exercise, return precautions reviewed 09/08/2024 Acute cystitis with hematuria (ICD-10 - N30.01) Start antibiotic for presumed UTI based on symptoms/UA results as stated above. Will follow urine culture for growth and anti-microbial sensitivities. Encouraged patient to drink plenty of fluids & stay well hydrated. Discussed return precautions to clinic/ED including fever, vomiting, new worsening abdominal or back pain, or if symptoms do not improve in 1-2 days. Patient voices understanding and is agreeable to the plan of care above. 09/08/2024 Dysuria (ICD-10 - R30.0) 09/09/2024 Acute cystitis with hematuria (ICD-10 - N30.01) Will follow urine culture for growth and anti-microbial sensitivities. Encouraged patient to drink plenty of fluids & stay well hydrated. Her current symptoms are not consistent with worsening UTI, but counseled extensively if she develops those symptoms then she needs to return to our office or the ED. Discussed return precautions to clinic/ED including vomiting, ger hematuria, new worsening abdominal or back pain, or if symptoms do not improve in 1-2 days. Will give Pyridium to help with her dysuria symptoms. Patient voices understanding and is agreeable to the plan of care above. 09/09/2024 Viral URI (ICD-10 - J06.9) Patient's UTI symptoms are improving yet she has new headache and fever. Truly feel she has caught the flu while also having a UTI diagnosed the day prior. Suspect testing is negative due to being too soon after symptom onset (only 3 hours ago). Encouraged patient to return to clinic for flu testing again tomorrow if desired. Reassurance. Discussed the etiology & expected course of a viral URI and discussed the rationale for not prescribing antibiotics. Continue supportive care with PRN antipyretics, OTC cough/cold meds, nasal saline rinses/Neti pot with distilled water, salt water gargles, cough drops, and humidifier. Encourage PO hydration. Patient must be fever and vomit free x 24 hours without fever reducing medications before going back to work. Discussed the signs and symptoms of worsening condition and need for reassessment in clinic or ED. Keep previously scheduled physical exam or f/u sooner PRN. Patient/family voice understanding and are agreeable to this plan. 10/09/2024 Other obesity due to excess calories (ICD-10 - E66.09) 10/09/2024 Acute cystitis with hematuria (ICD-10 - N30.01) 01/11/2025 Dysuria (ICD-10 - R30.0) 01/11/2025 Mild hyperlipidemia (ICD-10 - E78.5) 10/26/2024 Other obesity due to excess calories (ICD-10 - E66.09) 01/11/2025 Weight loss counseling, encounter for (ICD-10 - Z71.3) tolerating Wegovy well, continue efforts with dietary intake and regular exercise, return precautions reviewed 01/11/2025 Elevated serum creatinine (ICD-10 - R79.89) 10/19/2024 Other obesity due to excess calories (ICD-10 - E66.09) 01/11/2025 Prediabetes (ICD-10 - R73.03) 10/26/2024 Acute cystitis with hematuria (ICD-10 - N30.01) 01/11/2025 Other obesity due to excess calories (ICD-10 - E66.09) Reviewed indication for medication and that dietary changes as well as exercise are recommended as well. Small, frequent meals recommended. Possible side effects and return precautions reviewed. Goal is 4% weight loss over the first 4 months. 09/09/2024 Fever in adult (ICD-10 - R50.9) 09/06/2024 Obesity, class 1 (ICD-10 - E66.811) 06/25/2024 Renal function test abnormal (ICD-10 - R94.4) 07/31/2024 Other obesity due to excess calories (ICD-10 - E66.09) She has tolerated Ozempic in the past for weight loss and had good results. Insurance now covers Wegovy she believes. Resume starting dose, follow-up in 4 weeks. Reviewed indication for medication and that dietary changes as well as exercise are recommended as well. Small, frequent meals recommended. Possible side effects and return precautions reviewed. Goal is 4% weight loss over the first 4 months. 06/24/2024 KAVITHA (generalized anxiety disorder) (ICD-10 - F41.1) continue lexapro 02/19/2024 Tobacco use (ICD-10 - Z72.0) 02/19/2024 Routine medical exam (ICD-10 - Z00.00) 06/24/2024 Prediabetes (ICD-10 - R73.03) 09/06/2024 BMI 31.0-31.9,adult (ICD-10 - Z68.31) 07/31/2024 Body mass index [BMI] 32.0-32.9, adult (ICD-10 - Z68.32) 01/11/2025 BMI 27.0-27.9,adult (ICD-10 - Z68.27) 07/31/2024 Obesity, class 1 (ICD-10 - E66.811) 02/19/2024 BMI 32.0-32.9,adult (ICD-10 - Z68.32) complicates all aspects of care, encouraged better physical activity 02/19/2024 KAVITHA (generalized anxiety disorder) (ICD-10 - F41.1) continue lexapro 06/24/2024 Other Plan Of Treatment Pending Test Test Name Order Date X ray : Knee, Right 02/19/2024 Mammogram : Bilateral 08/08/2022 Dietary Consult 08/13/2022 M-Urine Microscopic 06/25/2024 Physical Therapy Eval and Treat 08/19/19 25 LIPID PANEL, STANDARD (7600) 01/11/2025 COMPREHENSIVE METABOLIC PANEL (22802) HEMOGLOBIN A1c (496) 01/11/2025 Insurance Providers Payer Name Payer Address Payer Phone Subscriber Number Group Number Insured Name Patient Relationship to Insured Coverage Start Date Coverage End Date [facility] [employer] [address] [place] [address] [id number] Kim Varela Self - patient is the insured Medical (General) History Medical History History ICD Code Anxiety Pre-diabetes, A1C 6.0 Hyperlipidemia Surgical History Surgery Date(Month/Year) Partial hysterectomy 2013 lt fallopian tube removal 2009 oral surgery 2015 sinus surgery 2016 Hospitalization History Reason Date(Month/Year) 2007 Partial hysterectomy 2013
[2025-01-19 14:40] VITALS: BP 131/84; PULSE 67; RESP 16; TEMP 36.6; O2SAT 100; BMI 27.6
[2025-01-19 14:45] VITALS: BP 131/84; PULSE 67; O2SAT 98
--- NOTE | 2025-01-19 15:11 | ED_ITS ---
<Statement entered by Kathe Nolasco DO - 01/19/25 17:04> I was consulted by the VJ, and we discussed the complexity of problems being addressed. I approve the treatment and management plan for this patient's care in the emergency department, thus performing a substantial portion of the medical decision making. Kathe Nolasco DO Discharge Plan Disposition Patient Disposition: Home, Self-Care Condition: Good Prescriptions Prescriptions: New prednisone 20 mg tablet 40 mg PO DAILY 5 Days Qty: 10 0RF No Action escitalopram oxalate [Lexapro] 20 mg tablet 20 mg PO DAILY omeprazole 40 mg capsule,delayed release(DR/EC) 40 mg PO DAILY propranolol 10 mg tablet 10 mg PO BID lorazepam 0.5 mg tablet 0.5 mg PO DAILY PRN albuterol sulfate [ProAir HFA] 90 mcg/actuation HFA aerosol inhaler 1 inh INHALATION QID amoxicillin 500 mg capsule 500 mg PO Q12H 10 Days Qty: 20 0RF cyclobenzaprine 10 mg tablet 10 mg PO TID PRN (Reason: muscle spasm) Qty: 30 0RF methylprednisolone [Medrol (Bhavesh)] 4 mg tablets,dose pack See Rx Instructions .Route .COMPLEX 6 Days Qty: 21 0RF Rx Instructions: taper pack; Referrals Follow up/Referrals: Doreen Vasquez APRN [Primary Care Provider, Medical] - See instructions Activity Restrictions/Add. Instructions Additional Instructions/Restrictions: Please return to the emergency department with any worsening signs or symptoms, please take your medication as prescribed, utilize Benadryl, cetirizine and other antihistamines as needed for itching. Please follow-up with your family doctor. Clinical Impressions Clinical Impression: Urticaria Instructions Patient Instructions: DI for Contact Dermatitis, DI for Hives Print Language Print Language: Monegasque Discharge ED Provider: Danyelle Boland General Adult HPI General Chief complaint: Skin/Abscess/Foreign Body Stated complaint: allergic reaction, swelling to face, rash all over Time Seen by Provider: 01/19/25 14:47 Mode of Arrival: Ambulatory Source of Information: Patient Description of Symptoms (Recalled from ER Triage Doc. by RN): patient states around 330am she woke up with itchy red rash under breast and around pelvic area. she also reports top lip is swollen. denies any new products History of Present Illness HPI narrative: 44-year-old female presents emergency department with a rash, around 330 am this morning, she describes pruritus, the rash is located on her right pelvic area/lower abdominal region, and under bilateral breast, she endorses numbness tingling , of her upper lip,/ swollen upper lip , denies any fever chills chest pain shortness of breath difficulty swallowing no cough congestion, no signs of airway compromise, no abdominal pain no nausea no vomiting no constipation no diarrhea no urinary symptomatology, patient is a non-smoker, denies any alcohol or drug use, patient denies any new detergents, no soaps, no new lotions, denies any environmental exposures, denies any bites or stings, denies any new medications, did finish a round of what sounds like Macrobid p.o. antibiotic several days ago, for which she has taken previously. Other past medical history consistent with KAVITHA/MDD, GERD. Of note patient took Benadryl and cetirizine this morning, Benadryl last night, and cetirizine this morning, which provided some relief to her symptomatology. No other areas of her body are affected by the rash. Onset (ago): hour(s) Related Data Home Medications ?Medication ?Instructions ?Recorded ?Confirmed albuterol sulfate 90 mcg/actuation 1 inh inhalation QI D 03/13/21 03/13/21 aerosol inhaler (ProAir HFA) escitalopram oxalate 20 mg tablet 20 mg PO DAILY 03/1303/13/21 (Lexapro) lorazepam 0.5 mg tablet 0.5 mg PO DAILY PRN 03/13/21 03/13/21 omeprazole 40 mg capsule,delayed 40 mg PO DAILY 03/13/21 release propranolol 10 mg tablet 10 mg PO BID 03/13/21 Previous Rx's ?Medication ?Instructions ?Recorded amoxicillin 500 mg capsule 500 mg PO Q12H otitis media 10 03/13/21 days #20 caps cyclobenzaprine 10 mg tablet 10 mg PO TID PRN muscle s pasm #30 05/13/22 tabs methylprednisolone 4 mg tablets in See Rx Instructions .Route 05/13/22 a dose pack (Medrol (Bhavesh)) .COMPLEX 6 days #21 tabs prednisone 20 mg tablet 40 mg (2 x 20 mg) PO DAILY 5 days 01/19/25 #10 tabs Allergies Allergy/AdvReac Type Severity Reaction Status Date / Time No Known Allergies Allergy Verified 03/13/21 12:55 [facility] Disclaimer: The information contained in this section may have been updated after the patient was seen, as this information can be updated by other users. Social History Smoking Status: Former smoker tobacco type: cigarettes packs per day: 1 alcohol intake: current alcohol intake frequency: a few times a week current occupational status: employed Travel in the last 8 weeks?: Inside the [facility] ([place]) housing: house Have you lived/traveled outside in past 30 days?: No Contact w/someone who lives/traveled outside [place] past 30 days?: No Exposure to someone with infectious disease in past 14 days?: No Do you have a fever (greater than 100.4 F or 38 C)?: No Have you tested positive for COVID-19?: No Exposed to someone with COVID-19 in past 14 days?: No Do you have a sore throat?: No Do you have a cough?: No Do you have any weakness?: No Do you have any diarrhea?: No Are you experiencing any unusual bleeding?: No Do you have any muscle aches/pain?: No Do you have any abdominal pain?: No Are you experiencing loss of taste or smell?: No Other Medical History Have you received the Pneumonia Vaccine: No ROS Obtained: Yes All systems reviewed & no additional complaints except as documented Physical Exam General General appearance: alert and in no apparent distress Head Head exam: atraumatic and normocephalic Eye Eye exam: Present PERRL and EOMI ENT ENT exam: Present mucous membranes moist Neck Neck exam: Present normal inspection Chest Chest inspection: Present normal inspection and symmetric chest wall rise Respiratory Respiratory exam: Present normal lung sounds bilaterally; Absent respiratory distress Cardiovascular Cardiovascular exam: Present regular rate and normal rhythm Abdominal Exam Abdominal exam: Present soft; Absent tenderness Extremities Exam Extremities exam: Present normal inspection Neurological Exam Neurological exam: Present alert and oriented X3 Psychiatric Psychiatric exam: Present normal affect Skin Skin exam: Present warm, dry, rash and other (Urticarial rash that is blanchable to the touch, under bilateral breast, and right pelvic/hip region, otherwise neurovascular intact.) Medical Decision Making Medical Records Medical records reviewed: Yes I reviewed the patient's medical records. Screening: Per USPSTF and CDC recommendations, given the prevalence of disease in our region, it is our hospital?s policy to screen for HIV and viral Hepatitis for all patients aged 18 and over and those with ongoing risk factors. Sohan Inquiry Pt receiving controlled substance: No Sohan was queried for this patient: No Vital Signs: 01/19/25 14:40 01/19/25 14:45 01/19/25 16:22 Temperature 97.9 F 97.9 F Temperature Source Oral Oral Pulse Rate 67 77 Pulse Rate [Right Radial] 67 Respiratory Rate 16 13 Blood Pressure 131/84 113/76 Blood Pressure [Right Arm] 131/84 Blood Pressure Mean [Right Arm] 99 Blood Pressure Source Automatic Cuff Blood Pressure Source [Right Arm] Automatic Cuff Blood Pressure Position Sitting Blood Pressure Position [Right Arm] Supine 02 Sat by Pulse Oximetry 100 98 Oxygen Delivery Method Room Air Room Air Orders (Tests/Meds): ED MEDICATIONS Discontinued Medications Generic Name Dose Route Start Last Admin Trade Name Freq PRN Reason Stop Dose Admin Famotidine 40 mg 01/19/25 15:09 01/19/25 15:26 Famotidine 20mg Tablet PO 01/19/25 15:10 40 mg ONCE ONE Administration Prednisone 60 mg 01/19/25 15:09 01/19/25 15:25 Prednisone 20mg Tab PO 01/19/25 15:10 60 mg ONCE ONE Administration Medical Decision Narrative: 44-year-old female presents emergency department with a rash, differential diagnosis include but not limited to, urticaria, allergic contact dermatitis, perioral dermatitis, irritant contact dermatitis, atopic dermatitis, hypersensitivity reaction among others. I discussed this patient's case with the attending physician Patient has no signs or symptoms of anaphylaxis, no periorbital swelling, no oropharyngeal edema or erythema, no mucocutaneous lesions, patient has rash localized as stated in physical exam, blanchable, only chief complaint is pruritus, will treat patient with 40 mg famotidine here in the emergency department, as well as 60 mg p.o. prednisone, will transition patient to oral 40 mg p.o. prednisone for 5 days, recommend [id number] medications for symptomatic relief, patient was given strict ED return precautions. Patient family voiced understanding and agreed with current treatment plan/discharge plan. Critical Care Critical Care Time Critical Care Time: No
[2025-01-19] MEDS: FAMOTIDINE 20MG TABLET 40 MG PO (15:26)
[2025-01-19 16:22] VITALS: BP 113/76; PULSE 77; RESP 13; TEMP 36.6; O2SAT 99
== END 2025-01-19 16:24 | disposition home or self-care (01) ==
PROVIDERS: Emergency Provider Emergency Medicine; PCP Nurse Practitioner Family
DX: L50.9 Urticaria, unspecified (principal)
CPT/HCPCS: 99283